=== PATIENT | male | born 1935 | race Caucasian/White ===

== ENCOUNTER 2018-10-15 15:33 | Emergency (ER) | payer MEDICARE, BC ==
[~2018-10-15] VITALS: Ht 170.2 cm; Wt 98.0 kg
--- NOTE | 2018-10-15 16:00 | NUR ---
CAME IN FOR BLE REDNESS AND ITCHING X 3-4 DAYS. TO ER BED 2, HOOKED TO MONITOR, PROVIDE W WARM BLANKET, AWAITING MD BERUMEN
--- NOTE | 2018-10-15 16:31 | NUR ---
DR ESCOBAR AT BEDSIDE
[2018-10-15 17:21] LABS: BASOPHILS % (AUTO) 0.4 % (0.0-2.0); HEMATOCRIT 39 % (39-51); HEMOGLOBIN 13.6 g/dL (13.5-17.5); LYMPHOCYTES # (AUTO) 1.5 /CMM (0.8-4.8); LYMPHOCYTES % (AUTO) 19.7 % (20.0-44.0); MEAN CORPUSCULAR HGB CONC 35 g/dl (31.0-36.0); MEAN CORPUSCULAR VOLUME 91 fL (80-96); MONOCYTES # (AUTO) 0.5 /CMM (0.1-1.30); MONOCYTES % (AUTO) 7.3 % (2.0-12.0); NEUTROPHILS # (AUTO) 5.2 /CMM (1.8-8.9); NEUTROPHILS % (AUTO) 69.6 % (43.0-81.0); PLATELET COUNT (AUTO) 143 /CMM (150-450); RED BLOOD CELL COUNT(AUTO) 4.25 MIL/uL (4.5-6.0); WHITE BLOOD COUNT (AUTO) 7.5 K/uL (4.3-11.0)
[2018-10-15 17:29] LABS: CALCIUM, SERUM 8.7 mg/dL (8.5-10.1); CREATININE 1.2 mg/dL (0.6-1.3)
--- NOTE | 2018-10-15 18:51 | NUR ---
Patient discharged to home in stable condition. Written and verbal after care instructions given. Patient verbalizes understanding of instruction.
[2018-10-15 18:52] VITALS: BP 99/54
== END 2018-10-15 18:53 | disposition home or self-care (01) ==
LOC: ER 15:36
DX: L03.116 Cellulitis of left lower limb (principal); L03.115 Cellulitis of right lower limb; R60.0 Localized edema; Z60.2 Problems related to living alone
CPT/HCPCS: 36415; 80048-TC; 83605-TC; 85025-TC

== ENCOUNTER 2019-11-28 01:36 | Inpatient (IN) | payer MEDICARE, BC ==
[~2019-11-28] VITALS: Ht 170.2 cm; Wt 93.4 kg
--- NOTE | 2019-11-28 01:40 | NUR ---
PT CAME TO THE ER FOR SOB X 2 DAYS AND CHRONIC CONSTIPATION. PT PLACED ON 2 L SUPPLEMENTAL O2. PT SATTING 96%. PT AAOX4, VSS,RESPIRATIONS EVEN AND UNLABORED ON RA W/ NAD NOTED. PT CONNECTED TO THE MIDDLE SCHOOL COACH AND POX
--- NOTE | 2019-11-28 01:40 | NUR ---
BLOOD COLLECETED AND SENT TO LAB
[2019-11-28 02:25] LABS: BASOPHILS % (AUTO) 0.1 % (0.0-2.0); HEMATOCRIT 30 % (39-51); HEMOGLOBIN 10.6 g/dL (13.5-17.5); LYMPHOCYTES # (AUTO) 0.4 /CMM (0.8-4.8); LYMPHOCYTES % (AUTO) 4.5 % (20.0-44.0); MEAN CORPUSCULAR HGB CONC 35 g/dl (31.0-36.0); MEAN CORPUSCULAR VOLUME 90 fL (80-96); MONOCYTES # (AUTO) 0.6 /CMM (0.1-1.30); MONOCYTES % (AUTO) 7.2 % (2.0-12.0); NEUTROPHILS # (AUTO) 7.5 /CMM (1.8-8.9); NEUTROPHILS % (AUTO) 88.2 % (43.0-81.0); PLATELET COUNT (AUTO) 161 /CMM (150-450); RED BLOOD CELL COUNT(AUTO) 3.34 MIL/uL (4.5-6.0); WHITE BLOOD COUNT (AUTO) 8.5 K/uL (4.3-11.0)
[2019-11-28 02:34] LABS: CALCIUM, SERUM 8.6 mg/dL (8.5-10.1); CARBON DIOXIDE 18 mmol/L (21-32); CHLORIDE 89 mmol/L (98-107); CREATININE 1.4 mg/dL (0.6-1.3); GLUCOSE 138 mg/dL (74-106); POTASSIUM 4.1 mmol/L (3.5-5.1); UREA NITROGEN, BLOOD 22 mg/dL (7-18)
[2019-11-28 02:43] LABS: SODIUM SERUM 120 mmol/L (136-145)
[2019-11-28 03:06] LABS: B-TYPE NATRIURETIC PEPTIDE 1453 PG/ML (0-125)
[2019-11-28] MEDS ORDERED: FUROSEMIDE 40 MG/4 ML VIAL ONE (03:29)
[2019-11-28] MEDS ORDERED: FUROSEMIDE 40 MG/4 ML VIAL IV ONE (03:30)
--- NOTE | 2019-11-28 04:25 | NUR ---
COVID NEGATIVE PER LAB
--- NOTE | 2019-11-28 06:18 | NUR ---
ULTRASOUND AT BEDSIDE
--- NOTE | 2019-11-28 07:00 | NUR ---
RN NOTES REPORT RECEIVED FROM GIANLUCA HUNT. PATIENT IN BED RESTING COMFORTABLY IN MODERATE HIGH BACK REST. A/O X4. ON RA, WITH NO SIGNS OF DISTRESS NOTED AT THIS TIME, IV ACCESS ON LEFT HAND #18, PATENT AND INTACT. SAFETY MEASURES INITIATED, BED LOW AND LOCKED, SIDE RAILS UP X2. CALL LIGHT PLACED WITHIN EASY REACH. WILL ADMIT THE PATIENT.
--- NOTE | 2019-11-28 07:10 | NUR ---
RN NOTES PATIENT REFUSED SKIN ASSESSMENT AND PICTURES.
[2019-11-28 08:00] VITALS: BP 129/78
[2019-11-28] MEDS ORDERED: MULT-447 PO (08:59)
[2019-11-28] MEDS ORDERED: CHOL100040 PO (08:59)
[2019-11-28] MEDS ORDERED: ALLO100T PO (08:59)
[2019-11-28] MEDS ORDERED: ASPI-1420 PO (08:59)
[2019-11-28] MEDS ORDERED: ALFU10TA10 PO (08:59)
[2019-11-28] MEDS ORDERED: ATOR10TA PO (08:59)
[2019-11-28] MEDS: PANTOPRAZOLE 40 MG TABLET.DR PO SCH (10:55)
[2019-11-28] MEDS: ASPIRIN EC 81 MG TABLET.DR PO SCH (10:55)
[2019-11-28] MEDS: ALLOPURINOL 100 MG TABLET PO SCH (10:55)
[2019-11-28] MEDS: ENOXAPARIN SODIUM 40 MG/0.4 ML DISP.SYRIN SQ SCH (10:56)
--- NOTE | 2019-11-28 10:59 | NUR ---
RN NOTES INDOCIN NOT AVAILABLE, CALLED PHARMACY AND THEY SAID THEY WILL DELIVER IT. WILL F/U.
[2019-11-28] MEDS: ATORVASTATIN 10 MG TABLET PO SCH (11:49)
--- NOTE | 2019-11-28 11:53 | NUR ---
RN NOTES URINE COLLECTED AND GIVEN TO THE HAND PAINT MIXER.
[2019-11-28] MEDS: INDOMETHACIN 25 MG CAPSULE PO SCH ×2 (11:58→16:24)
[2019-11-28] MEDS ORDERED: MAGNESIUM HYDROXIDE 30 ML UDC PO PRN (12:00)
[2019-11-28] MEDS ORDERED: Z GUARD REMEDY 2 OZ OINT TP PRN (12:00)
[2019-11-28] MEDS ORDERED: ACETAMINOPHEN 325 MG TABLET PO PRN (12:00)
[2019-11-28] MEDS ORDERED: MAG HYDROX/AL HYDROX/SIMETH 30 ML UDC PO PRN (12:00)
[2019-11-28] MEDS ORDERED: ONDANSETRON HCL/PF 4 MG/2 ML VIAL IVP PRN (12:00)
[2019-11-28 12:38] LABS: APPEARANCE,URINE CLEAR (CLEAR); BILIRUBIN,URINE NEGATIVE (NEGATIVE); BLOOD, URINE SMALL Ery/uL (NEGATIVE); COLOR,URINE YELLOW (YELLOW); KETONES,URINE NEGATIVE (NEGATIVE); LEUKOCYTE ESTERASE ,URINE NEGATIVE (NEGATIVE); NITRITE, URINE NEGATIVE (NEGATIVE); PROTEIN,URINE NEGATIVE (NEGATIVE); UGLUCOSE NEGATIVE (NEGATIVE); UROBILINOGEN,URINE 0.2 EU/dL (0.2)
[2019-11-28 12:39] LABS: WBC,URINE 0-2 /HPF (0-3)
[2019-11-28 12:40] LABS: BACTERIA,URINE Few /HPF (None Seen); SQUAMOUS EPITHELIAL CELL,UR Few /HPF (None Seen)
[2019-11-28 12:41] LABS: CREATININE, URINE 77.9 MG/DL (30.0-125.0); URINE TOTAL PROTEIN 19.2 mg/dL (0-11.9)
[2019-11-28 12:47] LABS: IRON, SERUM 22 ug/dl (50-175); TOTAL IRON BINDING CAPACITY 206 ug/dl (250-450)
[2019-11-28 12:49] LABS: EOSINOPHIL,URINE None Seen
[2019-11-28 13:01] LABS: ALANINE AMINOTRANSFERASE 71 U/L (12-78); ALBUMIN 2.8 g/dL (3.4-5.0); ALKALINE PHOSPHATASE 82 U/L (46-116); ASPARTATE AMINOTRANSFERASE 40 U/L (15-37); BILIRUBIN,TOTAL 0.7 mg/dL (0.2-1.0); CALCIUM, SERUM 8.6 mg/dL (8.5-10.1); CARBON DIOXIDE 22 mmol/L (21-32); CHLORIDE 90 mmol/L (98-107); CREATININE 1.6 mg/dL (0.6-1.3); GLUCOSE 114 mg/dL (74-106); MAGNESIUM 2.4 mg/dL (1.8-2.4); PHOSPHORUS 3.9 mg/dL (2.5-4.9); POTASSIUM 3.5 mmol/L (3.5-5.1); SODIUM SERUM 125 mmol/L (136-145); TOTAL PROTEIN, SERUM 7.3 g/dL (6.4-8.2); UREA NITROGEN, BLOOD 23 mg/dL (7-18)
[2019-11-28 13:17] VITALS: BP 110/64
[2019-11-28 13:53] LABS: FERRITIN 535 ng/mL (8-388); TRIGLYCERIDES 41 mg/dL (30-150)
[2019-11-28 13:54] LABS: CHOLESTEROL 87 mg/dL (<200); HDL CHOLESTEROL 49 mg/dL (40-60); LDL 29 mg/dL (0-99); THYROID STIMULATING HORMONE 1.075 uIU/mL (0.358-3.74)
[2019-11-28] MEDS: CHOLECALCIFEROL 1,000 UNIT TABLET (VIT D3) PO SCH (16:24)
[2019-11-28 16:55] VITALS: BP 99/59
--- NOTE | 2019-11-28 18:36 | NUR ---
RN NOTES PATIENT IN BED RESTING COMFORTABLY IN MODERATE HIGH BACK REST. A/O X4. ON RA, WITH NO SIGNS OF DISTRESS NOTED THROUGHOUT THE SHIFT, IV ACCESS ON LEFT HAND #18, PATENT AND INTACT. SAFETY MEASURES IN PLACE, BED LOW AND LOCKED, SIDE RAILS UP X2. CALL LIGHT PLACED WITHIN EASY REACH. WILL ENDORSE TO SKILLED TRADES TEACHER NURSE FOR YAMILETH.
--- NOTE | 2019-11-28 19:45 | NUR ---
CUSHION SEWER OPENING NOTES RECEIVED PATIENT IN BED ALERT AND ORIENTED X 3. VERBALLY RESPONSIVE AND ABLE TO FOLLOW DIRECTIONS. BREATHING REGULAR AND UNLABORED ON ROOM AIR. LEFT HAND G18 IV LINE INTACT AND PATENT, FLUSHING WELL WITH NO BLEEDING OR S/S OF INFILTRATION NOTED. ON CARDIAC MONITORING WITH NSR AT 78bpm. DENIES SUICIDAL IDEATION AND PAIN/DISCOMFORT AT THIS TIME. BED LOW AND LOCKED ON SEMI FOWLERS POSITION. CALL LIGHT IN REACH. WILL CONTINUE TO MONITOR.
[2019-11-28 20:00] VITALS: BP 102/57
[2019-11-29] VITALS: BP 101/60
--- NOTE | 2019-11-29 03:00 | NUR ---
DIESEL FLEET MECHANIC NOTES REFUSED SKIN ASSESSMENT, RISK AND BENEFITS EXPLAINED.
[2019-11-29 04:00] VITALS: BP 111/66
--- NOTE | 2019-11-29 06:50 | NUR ---
VEST BACKER CLOSING NOTES PATIENT IN BED ALERT AND ORIENTED X 3. AFEBRILE WITH NO S/S OF DISTRESS OBSERVED. LEFT HAND G18 IV LINE PATENT AND FLUSHING WELL. MAINTAINED ON CARDIAC MONITORING WITH NSR AT 75bpm. NO COMPLAINTS OF PAIN/DISCOMFORT AT THIS TIME. BED LOW AND LOCKED ON SEMI FOWLERS POSITION. CALL LIGHT IN REACH. WILL ENDORSE TO MORNING SHIFT FOR YAMILETH.
[2019-11-29 07:00] LABS: BASOPHILS % (AUTO) 0.1 % (0.0-2.0); EOSINOPHILS % (AUTO) 0.6 % (0.0-6.0); HEMATOCRIT 29 % (39-51); HEMOGLOBIN 10.1 g/dL (13.5-17.5); LYMPHOCYTES # (AUTO) 0.6 /CMM (0.8-4.8); LYMPHOCYTES % (AUTO) 8.2 % (20.0-44.0); MEAN CORPUSCULAR HGB CONC 35 g/dl (31.0-36.0); MEAN CORPUSCULAR VOLUME 88 fL (80-96); MONOCYTES # (AUTO) 0.7 /CMM (0.1-1.30); MONOCYTES % (AUTO) 10.1 % (2.0-12.0); PLATELET COUNT (AUTO) 180 /CMM (150-450); RED BLOOD CELL COUNT(AUTO) 3.27 MIL/uL (4.5-6.0); WHITE BLOOD COUNT (AUTO) 7.4 K/uL (4.3-11.0)
[2019-11-29 07:23] LABS: ALANINE AMINOTRANSFERASE 79 U/L (12-78); ALBUMIN 2.5 g/dL (3.4-5.0); ALKALINE PHOSPHATASE 75 U/L (46-116); ASPARTATE AMINOTRANSFERASE 40 U/L (15-37); BILIRUBIN,TOTAL 0.6 mg/dL (0.2-1.0); CALCIUM, SERUM 8.5 mg/dL (8.5-10.1); CARBON DIOXIDE 25 mmol/L (21-32); CHLORIDE 91 mmol/L (98-107); CREATININE 1.6 mg/dL (0.6-1.3); GLUCOSE 108 mg/dL (74-106); MAGNESIUM 2.3 mg/dL (1.8-2.4); PHOSPHORUS 4.2 mg/dL (2.5-4.9); POTASSIUM 3.6 mmol/L (3.5-5.1); SODIUM SERUM 125 mmol/L (136-145); TOTAL PROTEIN, SERUM 6.4 g/dL (6.4-8.2); UREA NITROGEN, BLOOD 31 mg/dL (7-18)
--- NOTE | 2019-11-29 07:24 | NUR ---
HEEL TOP LIFT SPLITTER OPENING NOTES RECEIVED PATIENT IN BED, AWAKE, A/O X3. PATIENT ON ROOM AIR; BREATHING IS EVEN AND UNLABORED; NO SOB NOTED AT THIS TIME. ON TELE WITH A CURRENT READING OF NSR. NO COMPLAINS OF PAIN. L HAND G # 18 IV ACCESS PRESENT AND INTACT. SAFETY PRECAUTIONS IN PLACE; BED IN LOW POSITION AND LOCKED, RAILS UP X2, CALL LIGHT WITHIN REACH. WILL CONTINUE TO MONITOR PATIENT.
[2019-11-29 08:01] LABS: FERRITIN 578 ng/mL (8-388); THYROID STIMULATING HORMONE 1.089 uIU/mL (0.358-3.74); URIC ACID 5.2 mg/dL (2.6-7.2)
[2019-11-29] MEDS: ASPIRIN EC 81 MG TABLET.DR PO SCH (08:07)
[2019-11-29] MEDS: ATORVASTATIN 10 MG TABLET PO SCH (08:07)
[2019-11-29] MEDS: ALLOPURINOL 100 MG TABLET PO SCH (08:07)
[2019-11-29] MEDS: CHOLECALCIFEROL 1,000 UNIT TABLET (VIT D3) PO SCH ×2 (08:07→16:07)
[2019-11-29] MEDS: PANTOPRAZOLE 40 MG TABLET.DR PO SCH (08:07)
[2019-11-29] MEDS: MULTIVITAMINS,THERAGRAN 1 UDTAB TABLET PO SCH (08:07)
[2019-11-29] MEDS: ENOXAPARIN SODIUM 40 MG/0.4 ML DISP.SYRIN SQ SCH (08:17)
[2019-11-29 08:31] VITALS: BP_SYST 155; BP_SYST 94; BP_DIAS 58; BP_DIAS 90
[2019-11-29] MEDS: Alfuzosin Hcl 10 MG PO SCH ×2 (08:54→16:07)
[2019-11-29] MEDS: INDOMETHACIN 25 MG CAPSULE PO SCH ×2 (08:54→16:07)
[2019-11-29 16:00] VITALS: BP 98/66
--- NOTE | 2019-11-29 18:49 | NUR ---
ASSESSMENT COORDINATOR CLOSING NOTES PATIENT IN BED, AWAKE, A/O X3. PATIENT ON ROOM AIR; BREATHING IS EVEN AND UNLABORED; NO SOB NOTED DURING THE SHIFT. ON TELE WITH A CURRENT READING OF NSR 73. NO COMPLAINS OF PAIN THROUGHOUT THE SHIFT. L HAND G # 18 IV ACCESS PRESENT AND INTACT. ALL NEEDS MET DURING THE DAY. PATIENT MUST BE NPO AFTER MIDNIGHT FOR PROCEDURE TOMORROW MORNING. SAFETY PRECAUTIONS IN PLACE; BED IN LOW POSITION AND LOCKED, RAILS UP X2, CALL LIGHT WITHIN REACH. WILL ENDORSE TO MECHANICAL SYSTEMS CONTROL ENGINEER NURSE.
--- NOTE | 2019-11-29 19:45 | NUR ---
ROPING TENDER OPENING NOTES RECEIVED PATIENT IN BED ALERT AND ORIENTED X 3. VERBALLY RESPONSIVE AND ABLE TO FOLLOW DIRECTIONS. BREATHING REGULAR AND UNLABORED ON ROOM AIR. LEFT HAND G18 IV LINE INTACT AND PATENT, FLUSHING WELL WITH NO BLEEDING OR S/S OF INFILTRATION NOTED. ON CARDIAC MONITORING WITH NSR AT 68bpm. DENIES SUICIDAL IDEATION AND PAIN/DISCOMFORT AT THIS TIME. BED LOW AND LOCKED ON SEMI FOWLERS POSITION. CALL LIGHT IN REACH. WILL CONTINUE TO MONITOR.
[2019-11-29 20:00] VITALS: BP 115/60
--- NOTE | 2019-11-29 21:00 | NUR ---
GOODYEAR WELTER NOTES COMPLAINED OF SHORTNESS OF BREATH, RECHECK SPO2 WITH 98% ON ROOM AIR. STARTED ON OXYGEN AT 2L/MIN VIA NASAL CANNULA. MAINTAINED ON SEMI FOWLERS POSITION. WILL CONTINUE TO MONITOR.
--- NOTE | 2019-11-29 23:00 | NUR ---
BUS ESCORT NOTES ADVISED ON NOTHING BY MOUTH STARTING MIDNIGHT, VERBALIZED UNDERSTANDING.
[2019-11-30] VITALS (24 sets, daily range): BP systolic 88–121; BP diastolic 37–66
--- NOTE | 2019-11-30 06:45 | NUR ---
MACHINE GROUP LEADER CLOSING NOTES PATIENT IN BED ALERT AND ORIENTED X 3. AFEBRILE WITH NO S/S OF DISTRESS OBSERVED. LEFT HAND G18 IV LINE PATENT AND FLUSHING WELL. MAINTAINED ON CARDIAC MONITORING WITH NSR AT 68bpm. NO COMPLAINTS OF PAIN/DISCOMFORT AT THIS TIME. BED LOW AND LOCKED ON SEMI FOWLERS POSITION. CALL LIGHT IN REACH. WILL ENDORSE TO MORNING SHIFT FOR YAMILETH.
[2019-11-30] MEDS ORDERED: IV NS 0.9% 1,000 ML ONE (06:48)
[2019-11-30] MEDS ORDERED: IV NS 0.9% 250 ML IV ONE (06:54)
[2019-11-30] MEDS ORDERED: LIDOCAINE HCL/PF 1% 30 ML SDV ONE (06:55)
[2019-11-30] MEDS ORDERED: IODIXANOL 320MG/ML 100 ML IV ONE (07:25)
[2019-11-30] MEDS ORDERED: FENTANYL PF 100MCG/2ML AMPUL ONE (07:29)
[2019-11-30] MEDS ORDERED: MIDAZOLAM HCL 2 MG/2ML VIAL ONE (07:29)
--- NOTE | 2019-11-30 09:00 | NUR ---
FLUSHED 10CC OF NS INTO THE PERICARDIAL DRAIN TO THE PATIENT AND ATTEMPTED TO ASPIRATE 10CC OUT BUT NO RESIDUAL RETURN.
--- NOTE | 2019-11-30 09:15 | NUR ---
RECEIVED PATIENT FROM RESIDENTIAL COUNSELOR POST PERICARDIOCENTESIS. NO ACUTE DISTRESS NOTED AT THIS TIME. SR ON BEDSIDE MONITOR NOTED IN THE 80S. SAFETY MEASURES IMPLEMENTED, BED IN LOWEST POSITION, LOCKED, SIDE RAILS UP, CALL LIGHT WITHIN REACH. WILL CONTINUE TO MONITOR PATIENT FOR CHANGES.
[2019-11-30] MEDS: ENOXAPARIN SODIUM 40 MG/0.4 ML DISP.SYRIN SQ SCH (10:19)
[2019-11-30] MEDS: ALLOPURINOL 100 MG TABLET PO SCH (10:20)
[2019-11-30] MEDS: ATORVASTATIN 10 MG TABLET PO SCH (10:20)
[2019-11-30] MEDS: ASPIRIN EC 81 MG TABLET.DR PO SCH (10:20)
[2019-11-30] MEDS: MULTIVITAMINS,THERAGRAN 1 UDTAB TABLET PO SCH (10:21)
[2019-11-30] MEDS: PANTOPRAZOLE 40 MG TABLET.DR PO SCH (10:21)
[2019-11-30] MEDS: CHOLECALCIFEROL 1,000 UNIT TABLET (VIT D3) PO SCH ×2 (10:21→17:21)
--- NOTE | 2019-11-30 10:21 | NUR ---
AWAITING GIANLUCA PRITCHETT TO BRING MEDS FROM [facility] FROM [place]. ALSO, AWAITING PATIENT'S BELONGINGS.
[2019-11-30] MEDS: INDOMETHACIN 25 MG CAPSULE PO SCH ×2 (10:58→17:21)
[2019-11-30] MEDS: Alfuzosin Hcl 10 MG PO SCH ×2 (10:58→17:22)
[2019-11-30 11:24] LABS: BASOPHILS % (AUTO) 0.1 % (0.0-2.0); EOSINOPHILS % (AUTO) 1.2 % (0.0-6.0); HEMATOCRIT 33 % (39-51); HEMOGLOBIN 11.2 g/dL (13.5-17.5); LYMPHOCYTES # (AUTO) 0.6 /CMM (0.8-4.8); LYMPHOCYTES % (AUTO) 7.8 % (20.0-44.0); MEAN CORPUSCULAR HGB CONC 35 g/dl (31.0-36.0); MEAN CORPUSCULAR VOLUME 90 fL (80-96); MONOCYTES # (AUTO) 0.5 /CMM (0.1-1.30); MONOCYTES % (AUTO) 6.9 % (2.0-12.0); NEUTROPHILS # (AUTO) 6.2 /CMM (1.8-8.9); PLATELET COUNT (AUTO) 228 /CMM (150-450); RED BLOOD CELL COUNT(AUTO) 3.63 MIL/uL (4.5-6.0); WHITE BLOOD COUNT (AUTO) 7.4 K/uL (4.3-11.0)
[2019-11-30 12:02] LABS: URINE SODIUM, RANDOM 14 mmol/l (40-220)
--- NOTE | 2019-11-30 12:27 | NUR ---
SPOKE WITH PATIENT'S (LIZA PTEE), SHE WANTS TO SPEAK WITH ON CASE, CALL BACK NUMBER [phone]
[2019-11-30 13:17] LABS: OSMOLALITY,URINE 356 mOS/kg (340-1090)
[2019-11-30 13:24] LABS: ALANINE AMINOTRANSFERASE 73 U/L (12-78); ALBUMIN 2.5 g/dL (3.4-5.0); ALKALINE PHOSPHATASE 87 U/L (46-116); ASPARTATE AMINOTRANSFERASE 32 U/L (15-37); BILIRUBIN,TOTAL 0.7 mg/dL (0.2-1.0); CALCIUM, SERUM 8.6 mg/dL (8.5-10.1); CARBON DIOXIDE 27 mmol/L (21-32); CHLORIDE 94 mmol/L (98-107); CREATININE 1.4 mg/dL (0.6-1.3); GLUCOSE 104 mg/dL (74-106); MAGNESIUM 2.3 mg/dL (1.8-2.4); PHOSPHORUS 3.7 mg/dL (2.5-4.9); POTASSIUM 3.7 mmol/L (3.5-5.1); SODIUM SERUM 127 mmol/L (136-145); TOTAL PROTEIN, SERUM 6.8 g/dL (6.4-8.2); UREA NITROGEN, BLOOD 26 mg/dL (7-18)
[2019-11-30] MEDS: CEFTRIAXONE 1 G in IV D5W 50 ML IV SCH (16:20)
[2019-11-30] MEDS: AZITHROMYCIN 500 MG in IV D5W 250 ML IV SCH (17:22)
--- NOTE | 2019-11-30 19:15 | NUR ---
RN CLOSING NOTE: PATIENT REMAINS IN BED. NO SIGNS OF ACUTE DISTRESS NOTED AT THIS TIME. PATIENT IS SR IN THE 80S. SAFETY MEASURES IMPLEMENTED, BED IN LOWEST POSITION, LOCKED, SIDE RAILS UP, CALL LIGHT WITHIN REACH. ENDORSED TO ONCOMING SHIFT RN FOR CONTINUITY OF CARE.
[2019-12-01] VITALS (25 sets, daily range): BP systolic 87–115; BP diastolic 46–62
--- NOTE | 2019-12-01 03:00 | NUR ---
AGAIN FLUSHED ATTEMPTED TO ASPIRATE 10CC OF NS ONTO PATIENT DRAIN TO THE PATIENT BUT NO SEEN. PATIENT HAS NO SOB/ PAIN OR ANY OTHER CONCERNS.
[2019-12-01 04:26] LABS: BASOPHILS % (AUTO) 0.4 % (0.0-2.0); EOSINOPHILS % (AUTO) 2.4 % (0.0-6.0); HEMATOCRIT 31 % (39-51); HEMOGLOBIN 10.8 g/dL (13.5-17.5); LYMPHOCYTES # (AUTO) 0.7 /CMM (0.8-4.8); LYMPHOCYTES % (AUTO) 8.7 % (20.0-44.0); MEAN CORPUSCULAR HGB CONC 35 g/dl (31.0-36.0); MEAN CORPUSCULAR VOLUME 89 fL (80-96); MONOCYTES # (AUTO) 0.5 /CMM (0.1-1.30); MONOCYTES % (AUTO) 6.8 % (2.0-12.0); NEUTROPHILS # (AUTO) 6.6 /CMM (1.8-8.9); NEUTROPHILS % (AUTO) 81.7 % (43.0-81.0); PLATELET COUNT (AUTO) 212 /CMM (150-450); RED BLOOD CELL COUNT(AUTO) 3.48 MIL/uL (4.5-6.0); WHITE BLOOD COUNT (AUTO) 8.1 K/uL (4.3-11.0)
[2019-12-01 04:37] LABS: CALCIUM, SERUM 8.3 mg/dL (8.5-10.1); CARBON DIOXIDE 26 mmol/L (21-32); CHLORIDE 96 mmol/L (98-107); CREATININE 1.4 mg/dL (0.6-1.3); GLUCOSE 95 mg/dL (74-106); POTASSIUM 3.8 mmol/L (3.5-5.1); SODIUM SERUM 129 mmol/L (136-145); UREA NITROGEN, BLOOD 23 mg/dL (7-18)
--- NOTE | 2019-12-01 07:44 | NUR ---
RN OPENING NOTE: RECEIVED PATIENT IN BED THIS MORNING. PATIENT IS AAOX3, RESPONDS APPROPRIATELY. NO SIGNS OF ACUTE DISTRESS NOTED AT THIS TIME. O2 VIA NC @ 2L/MIN, SATING WELL. PATIENT IS CONTINENT. #22 L HAND, C/D/I, FLUSHING WELL, NO SIGNS OF COMPLICATIONS NOTED. PERICARDIAL DRAIN C/D/I, NO DRAINAGE AT THIS TIME, NO C/O PAIN. SAFETY MEASURES IMPLEMENTED, BED IN LOWEST POSITION, LOCKED, SIDE RAILS UP, CALL LIGHT WITHIN REACH. WILL CONTINUE TO MONITOR PATIENT FOR CHANGES.
[2019-12-01] MEDS: Alfuzosin Hcl 10 MG PO SCH ×2 (08:18→16:28)
[2019-12-01] MEDS: MULTIVITAMINS,THERAGRAN 1 UDTAB TABLET PO SCH (08:19)
[2019-12-01] MEDS: PANTOPRAZOLE 40 MG TABLET.DR PO SCH (08:19)
[2019-12-01] MEDS: CHOLECALCIFEROL 1,000 UNIT TABLET (VIT D3) PO SCH ×2 (08:19→16:28)
[2019-12-01] MEDS: ATORVASTATIN 10 MG TABLET PO SCH (08:19)
[2019-12-01] MEDS: ALLOPURINOL 100 MG TABLET PO SCH (08:19)
[2019-12-01] MEDS: ASPIRIN EC 81 MG TABLET.DR PO SCH (08:19)
[2019-12-01] MEDS: ENOXAPARIN SODIUM 40 MG/0.4 ML DISP.SYRIN SQ SCH (08:19)
[2019-12-01] MEDS: INDOMETHACIN 25 MG CAPSULE PO SCH ×2 (08:19→16:28)
[2019-12-01] MEDS: CEFTRIAXONE 1 G in IV D5W 50 ML IV SCH (15:00)
--- NOTE | 2019-12-01 15:00 | NUR ---
PERICARDIAL DRAIN REMOVED BY CARDIO. PATIENT HAS NO COMPLAINTS AT THIS TIME. WILL CONTINUE TO MONITOR PATIENT.
[2019-12-01] MEDS: AZITHROMYCIN 500 MG in IV D5W 250 ML IV SCH (16:26)
--- NOTE | 2019-12-01 18:22 | NUR ---
RN CLOSING NOTE: PATIENT REMAINS IN BED. NO SIGNS OF ACUTE DISTRESS NOTED AT THIS TIME. SR IN THE 70S NOTED ON THE MONITOR. SATING WELL ON ROOM AIR. SAFETY MEASURES IMPLEMENTED, BED IN LOWEST POSITION, LOCKED, SIDE RAILS UP, CALL LIGHT WITHIN REACH. WILL ENDORSE TO ONCOMING SHIFT RN FOR CONTINUITY OF CARE.
--- NOTE | 2019-12-01 19:45 | NUR ---
ICU/DIP BRAZIER RECEIVED REPORT FROM DAY NURSE. SEE FLOWSHEET FOR ASSESSMENT,NO SKIN ISSUES TO BE ADDRESSED. PT IS ALERTX4. PT IS ON ROOM AIR TOLERATING THIS WELL WITH SATURATION AT 95%. PT TURNS AND REPOSITIONS SELF INDEPENDENTLY FOR COMFORT AND CARE. WILL CONTINUE TO MONITOR THIS PT, NO ACUTE DISTRESS SEEN.
--- NOTE | 2019-12-01 20:46 | NUR ---
ICU/GUEST RELATIONS RECEPTIONIST LOSE WATERY STOOL SENT TO LAB, PER C-DIFF PROTOCOL. PT HAS HAD MANY LOSE WATERY YELLOW STOOL. WILL CONTINUE TO MONITOR THIS PT.
--- NOTE | 2019-12-01 23:45 | NUR ---
ICU/NURSE NAVIGATOR PT APPEARS TO BE RESTING COMFORTABLY, CALL LIGHT WITHIN REACH. WILL CONTINUE TO MONITOR THIS PT.
[2019-12-02] VITALS (21 sets, daily range): BP systolic 86–121; BP diastolic 50–83
--- NOTE | 2019-12-02 02:15 | NUR ---
ICU/PIT TANNER PT CALLED ASKED FOR URINAL, VOIDED 200ML. PT HASN'T VOIDED VERY MUCH. WILL CONTINUE TO CLOSELY MONITOR THIS PT'S OUTPUT.
[2019-12-02 04:15] LABS: BASOPHILS % (AUTO) 0.5 % (0.0-2.0); EOSINOPHILS % (AUTO) 3.4 % (0.0-6.0); HEMATOCRIT 31 % (39-51); HEMOGLOBIN 10.7 g/dL (13.5-17.5); LYMPHOCYTES # (AUTO) 0.8 /CMM (0.8-4.8); LYMPHOCYTES % (AUTO) 12.8 % (20.0-44.0); MEAN CORPUSCULAR HGB CONC 35 g/dl (31.0-36.0); MEAN CORPUSCULAR VOLUME 89 fL (80-96); MONOCYTES # (AUTO) 0.6 /CMM (0.1-1.30); MONOCYTES % (AUTO) 9.5 % (2.0-12.0); NEUTROPHILS # (AUTO) 4.5 /CMM (1.8-8.9); NEUTROPHILS % (AUTO) 73.8 % (43.0-81.0); PLATELET COUNT (AUTO) 219 /CMM (150-450); RED BLOOD CELL COUNT(AUTO) 3.47 MIL/uL (4.5-6.0); WHITE BLOOD COUNT (AUTO) 6.1 K/uL (4.3-11.0)
[2019-12-02 04:29] LABS: CALCIUM, SERUM 8.6 mg/dL (8.5-10.1); CARBON DIOXIDE 26 mmol/L (21-32); CHLORIDE 100 mmol/L (98-107); CREATININE 1.5 mg/dL (0.6-1.3); GLUCOSE 102 mg/dL (74-106); SODIUM SERUM 133 mmol/L (136-145); UREA NITROGEN, BLOOD 22 mg/dL (7-18)
--- NOTE | 2019-12-02 05:00 | NUR ---
ICU/SORORITY MOTHER AM LABS WERE BACK, NO ACTE RESULTS TO CALL IN TO .
--- NOTE | 2019-12-02 07:00 | NUR ---
TIRE CHANGER PATIENT AWAKE AND ALERT ORIENTED X4 . PATIENT SR. IN THE 80'S PATIENT SHOWS NO SIGNS OF ACUTE RESPIRATORY DISTRESS , NO PAIN , NO SOB. COOPERATIVE WITH CARE AND IS AWARE OF HIS POSITION IN THE HOSPITAL. PATIENT STATE HE FEELS BETTER AND WONDER WHEN HE CAN WALK AROUND. PATIENT HAS BEDSIDE COMMODE WITH URINAL AT BEDSIDE. PATIENT HAS OUTPUT OF 100 ML . PATIENT HAS L ARM SKIN TEAR. . L HAND 20# SALINE LOCKED. LINE FLUSHED AND PATIENT NO SIGNS OF INFILTRATION OR S/S OF INFECTION. BED LOCKED LOWEST POSITION CALL LIGHT WITH IN REACH ALL SAFETY MEASURE IMPLEMENTED PER HOSPITAL POLICY.
[2019-12-02] MEDS: ATORVASTATIN 10 MG TABLET PO SCH (09:00)
[2019-12-02] MEDS: ENOXAPARIN SODIUM 40 MG/0.4 ML DISP.SYRIN SQ SCH (09:00)
[2019-12-02] MEDS: CHOLECALCIFEROL 1,000 UNIT TABLET (VIT D3) PO SCH ×2 (09:30→17:00)
[2019-12-02] MEDS: MULTIVITAMINS,THERAGRAN 1 UDTAB TABLET PO SCH (09:30)
[2019-12-02] MEDS: Alfuzosin Hcl 10 MG PO SCH ×2 (09:30→17:00)
[2019-12-02] MEDS: PANTOPRAZOLE 40 MG TABLET.DR PO SCH (09:30)
[2019-12-02] MEDS: ASPIRIN EC 81 MG TABLET.DR PO SCH (09:30)
[2019-12-02] MEDS: INDOMETHACIN 25 MG CAPSULE PO SCH ×2 (09:31→17:00)
[2019-12-02] MEDS: ALLOPURINOL 100 MG TABLET PO SCH (09:31)
[2019-12-02] MEDS: CEFTRIAXONE 1 G in IV D5W 50 ML IV SCH (15:48)
[2019-12-02] MEDS: AZITHROMYCIN 500 MG in IV D5W 250 ML IV SCH (16:25)
--- NOTE | 2019-12-02 17:30 | NUR ---
TESSIE RN NOTES PATIENT TRANSFERRED FROM ICU AT THIS TIME, REPORT GIVEN BEDSIDE RN. PATIENT A/O X3 84 Y/OLD MALE, ON ROOM AIR, NO ACUTE RESPIRATORY DISTRESS, V/S TAKEN BP 108/59, R-18, P-71, T-97.5. PATIENT REFUSED PAIN, TELE MONITOR ON SR-73. PATIENT USING BRP, OFFERED WALKER , CALL LIGHT WITHIN TO REACH, ENCOURAGED TO CALL BEFORE GET OUT OF BED. PATIENT VERBALIZED UNDERSTANDING. DINNER DISTRIBUTED.
--- NOTE | 2019-12-02 17:59 | NUR ---
AS400 OPERATOR - PATIENT TRANSFER BY BED TO [facility] -
--- NOTE | 2019-12-02 18:00 | NUR ---
HOME SERVICE CONSULTANT - REPORT GIVEN TO TESSIE NURSE
--- NOTE | 2019-12-02 18:30 | NUR ---
RN NOTES PATIENT STABLE, TOLERATED DINNER WELL, REFUSED PAIN, USING WALKER TO THE BATHROOM. SAFETY PRECAUTION MAINTAINED ALL THE TIME. ENDORSED ONCOMING NURSE FOLLOW PLAN OF CARE.
[2019-12-03] VITALS: BP 122/67
[2019-12-03 04:00] VITALS: BP 118/72
--- NOTE | 2019-12-03 05:39 | NUR ---
RN notes Received patient in bed, resting comfortably. Awake, alert and oriented, verbally able to communicate needs. Breathing even and unlabored. On room air tolerating well. No complaint of pain or discomfort. Needs attended. Kept clean and comfortable. Will endorse to next shift for continuity of care.
--- NOTE | 2019-12-03 07:30 | NUR ---
DRAGLINE ENGINEER OPENING NOTES PATIENT IS ALERT AND ORIENTED X3. NO SIGNS OF ACUTE DISTRESS NOTED AT THIS TIME. O2 VIA NC @ 2L/MIN, SATING WELL. PATIENT IS CONTINENT. #22 L HAND, C/D/I, FLUSHING WELL, NO SIGNS OF COMPLICATIONS NOTED. PERICARDIAL DRAIN C/D/I, NO DRAINAGE AT THIS TIME, NO C/O PAIN. SAFETY MEASURES IMPLEMENTED, BED IN LOWEST POSITION, LOCKED, SIDE RAILS UP, CALL LIGHT WITHIN REACH. WILL CONTINUE TO MONITOR PATIENT.
[2019-12-03 08:00] VITALS: BP 119/60
[2019-12-03] MEDS: ASPIRIN EC 81 MG TABLET.DR PO SCH (09:07)
[2019-12-03] MEDS: MULTIVITAMINS,THERAGRAN 1 UDTAB TABLET PO SCH (09:08)
[2019-12-03] MEDS: ALLOPURINOL 100 MG TABLET PO SCH (09:08)
[2019-12-03] MEDS: PANTOPRAZOLE 40 MG TABLET.DR PO SCH (09:08)
[2019-12-03] MEDS: ATORVASTATIN 10 MG TABLET PO SCH (09:08)
[2019-12-03] MEDS: CHOLECALCIFEROL 1,000 UNIT TABLET (VIT D3) PO SCH (09:08)
[2019-12-03] MEDS: ENOXAPARIN SODIUM 40 MG/0.4 ML DISP.SYRIN SQ SCH (09:10)
[2019-12-03] MEDS: INDOMETHACIN 25 MG CAPSULE PO SCH (09:12)
[2019-12-03] MEDS: Alfuzosin Hcl 10 MG PO SCH (11:33)
[2019-12-03 12:00] VITALS: BP 137/82
--- NOTE | 2019-12-03 13:00 | NUR ---
SPOKE TO DR. GUERRERO PATIENT IS CLEAR TO GO HOME. WILL INFORM .
[2019-12-03] MEDS ORDERED: AZITHROMYCIN 250 MG TABLET PO SCH (16:00)
--- NOTE | 2019-12-03 16:00 | NUR ---
PT DISCHARGED HOME VIA PRIVATE CAR, PICKED UP BY . PT IS ALERT AND ORIENTED X4. NOT IN ANY ACUTE DISTRESS. BODY CHECK DONE PRIOR TO DISCHARGE. DISCHARGE INSTRUCTIONS PROVIDED. IV ON LEFT HAND DISCONTINUED. PT LEFT IN STABLE CONDITION.
== END 2019-12-03 15:59 | disposition home health service (06) | DRG 314 ==
LOC: ER 01:39 → TELE 06:30 → MED 07:30 → TELE 08:08 → ICU 11-30 09:20 → TELE1 12-02 17:17
PROVIDERS: ADMIT Internal Medicine; ATTEND Internal Medicine
PROC: 0W9D30Z Drainage of Pericardial Cavity with Drainage Device, Percutaneous Approach (ICD-10-PCS; principal; 2019-11-30)
DX: I31.3 Pericardial effusion (noninflammatory) (principal); I50.31 Acute diastolic (congestive) heart failure; N17.0 Acute kidney failure with tubular necrosis; E22.2 Syndrome of inappropriate secretion of antidiuretic hormone; J98.11 Atelectasis; I11.0 Hypertensive heart disease with heart failure; I31.4 Cardiac tamponade; D63.8 Anemia in other chronic diseases classified elsewhere; M10.9 Gout, unspecified; Z87.891 Personal history of nicotine dependence; M16.0 Bilateral primary osteoarthritis of hip; K57.30 Diverticulosis of large intestine without perforation or abscess without bleeding; K59.09 Other constipation; N40.0 Benign prostatic hyperplasia without lower urinary tract symptoms; R73.9 Hyperglycemia, unspecified; K76.0 Fatty (change of) liver, not elsewhere classified; K86.89 Other specified diseases of pancreas
CPT/HCPCS: 33010; 36415; 71045-TC; 71250-TC; 76705-TC; 80048-TC; 80053-TC; 80061-TC; 81000-TC; 82378; 82533; 82570-TC; 82728-TC; 83540-TC; 83735-TC; 83880; 83935-TC; 84100-TC; 84155-TC; 84300-TC; 84439-TC; 84443-TC; 84484-TC; 84550-TC; 85025-TC; 85652-TC; 85730-TC; 87070-TC; 87081-TC; 87102-TC; 88108-TC; 88305-TC; 88312-TC; 89051-TC; 93307-TC; 97112-TC; 97116-TC; 97530-TC; C1894; C9803; G0378; J0456; J0696; J1644; J1650; J1940; J2250; J3010; J3490; J7050; J7060

== ENCOUNTER 2020-11-23 01:04 | Emergency (ER) | payer MEDICARE, BC ==
[~2020-11-23] VITALS: Ht 165.1 cm; Wt 90.7 kg
[~2020-11-23 01:04] MED LIST: ALFU10TA10 PO; ALLO100T PO; ASPI-1420 PO; ATOR10TA PO; CHOL100040 PO; MULT-447 PO
--- NOTE | 2020-11-23 01:40 | NUR ---
BIB SELF C/O GENERALIZED ABD PAIN 6/10 ONSET AT 2100.PT HAD AN EPISODE OF NASUEA AND VOMITTING UPON ASSESSMENT. PT DENIES ANY CHANGES IN BM AND STATES LAST BM WAS AT 0. -C/P -SOB BREATHING EVEN AND UNLABORED. PT CHANGED INTO A GOWN AND PLACED ON THE MONITOR. VSS AND MD WAS AT BEDSIDE FOR EVAL.
[2020-11-23] MEDS ORDERED: MORPHINE SULFATE INJ 4 MG/ML DISP.SYRIN ONE (01:45)
[2020-11-23] MEDS ORDERED: ONDANSETRON HCL/PF 4 MG/2 ML VIAL ONE (01:45)
[2020-11-23 01:52] LABS: BASOPHILS % (AUTO) 0.4 % (0.0-2.0); HEMATOCRIT 40 % (39-51); HEMOGLOBIN 13.6 g/dL (13.5-17.5); LYMPHOCYTES # (AUTO) 1.4 K/uL (0.8-4.8); MEAN CORPUSCULAR HGB CONC 34 g/dl (31.0-36.0); MEAN CORPUSCULAR VOLUME 92 fL (80-96); MONOCYTES # (AUTO) 0.6 K/uL (0.1-1.30); MONOCYTES % (AUTO) 5.7 % (2.0-12.0); NEUTROPHILS % (AUTO) 78.9 % (43.0-81.0); PLATELET COUNT (AUTO) 160 K/uL (150-450); RED BLOOD CELL COUNT(AUTO) 4.36 MIL/uL (4.5-6.0); WHITE BLOOD COUNT (AUTO) 10.1 K/uL (4.3-11.0)
[2020-11-23] MEDS ORDERED: MORPHINE SULFATE INJ 2 MG/ML DISP.SYRIN IV ONE (02:00)
[2020-11-23] MEDS ORDERED: ONDANSETRON HCL/PF 4 MG/2 ML VIAL IVP ONE (02:00)
[2020-11-23] MEDS ORDERED: IV NS 0.9% 1,000 ML BAG IV ONE (02:00)
[2020-11-23 02:06] LABS: BILIRUBIN,URINE Negative (NEGATIVE); COLOR,URINE YELLOW (YELLOW); LEUKOCYTE ESTERASE ,URINE Negative (NEGATIVE); NITRITE, URINE Negative (NEGATIVE); PROTEIN,URINE Negative (NEGATIVE); UGLUCOSE Negative (NEGATIVE); UROBILINOGEN,URINE 0.2 EU/dL (0.2)
[2020-11-23 02:09] LABS: ALANINE AMINOTRANSFERASE 27 U/L (12-78); ALBUMIN 3.7 g/dL (3.4-5.0); ALKALINE PHOSPHATASE 82 U/L (46-116); ASPARTATE AMINOTRANSFERASE 19 U/L (15-37); BILIRUBIN,DIRECT 0.2 mg/dL (0.0-0.2); BILIRUBIN,TOTAL 0.8 mg/dL (0.2-1.0); CALCIUM, SERUM 8.8 mg/dL (8.5-10.1); CARBON DIOXIDE 26 mmol/L (21-32); CHLORIDE 101 mmol/L (98-107); CREATININE 1.4 mg/dL (0.6-1.3); GLUCOSE 122 mg/dL (74-106); LIPASE 102 U/L (73-393); POTASSIUM 4.5 mmol/L (3.5-5.1); SODIUM SERUM 135 mmol/L (136-145); TOTAL PROTEIN, SERUM 7.7 g/dL (6.4-8.2); UREA NITROGEN, BLOOD 26 mg/dL (7-18)
--- NOTE | 2020-11-23 02:10 | NUR ---
BACK FROM CT
[2020-11-23 02:35] LABS: BACTERIA,URINE None seen /HPF (None Seen); SQUAMOUS EPITHELIAL CELL,UR Few /HPF (None Seen); WBC,URINE 0-2 /HPF (0-3)
--- NOTE | 2020-11-23 03:30 | NUR ---
CALLED [facility] FOR RADIOLOGY READS
[2020-11-23] MEDS ORDERED: DOCU-141 PO (03:56)
--- NOTE | 2020-11-23 03:59 | NUR ---
CALLED FOR PICKUP
[2020-11-23 04:00] VITALS: BP 126/66
--- NOTE | 2020-11-23 04:00 | NUR ---
Patient discharged to home in stable condition. Written and verbal after care instructions given. Patient verbalizes understanding of instruction. RX given
== END 2020-11-23 04:21 | disposition home or self-care (01) ==
LOC: ER 01:06
DX: K59.00 Constipation, unspecified (principal); R10.84 Generalized abdominal pain; R11.2 Nausea with vomiting, unspecified; M10.9 Gout, unspecified; Z60.2 Problems related to living alone; Z79.82 Long term (current) use of aspirin; Z79.899 Other long term (current) drug therapy
CPT/HCPCS: 36415; 71045; 74176; 80048; 80076; 81001; 83690; 84484; 85025; 85730; 93005; 96361; 96374; 96375; 99285; J2270; J2405; J7030